=== PATIENT | female | born 1970 | race Caucasian/White ===

== ENCOUNTER 2017-05-24 22:30 | Inpatient (IN) | payer MEDICAID ==
[~2017-05-24] VITALS: Ht 154.9 cm; Wt 58.1 kg
[2017-05-25] VITALS (12 sets, daily range): BP systolic 99–181; BP diastolic 49–104
[2017-05-25] MEDS ORDERED: ONDANSETRON HCL 4MG/2ML VIAL IV PRN (02:15)
[2017-05-25] MEDS ORDERED: ZOLPIDEM TARTRATE 5MG TABLET PO PRN (02:15)
[2017-05-25] MEDS: HYDROMORPHONE HCL/PF 2MG/ML CPJ IM PRN ×2 (06:26→19:38)
[2017-05-25] MEDS: SODIUM CHLORIDE 0.45% 1,000 ML IV SCH ×2 (06:26→15:30)
[2017-05-25 07:34] LABS: HEMATOCRIT. 42.3 % (36.0-48.0); MEAN CORPUSCULAR HEMOGLOBIN 28.6 pg (28.0-32.0); MEAN CORPUSCULAR VOLUME 86.3 fL (81.0-99.0); MEAN PLATELET VOLUME 9.7 fl (7.4-10.4); PLATELET 252 x1000/uL (130-400); RED CELL DISTRIBUTION WIDTH 16.7 % (11.6-14.6)
[2017-05-25 08:16] LABS: AMYLASE 25 IU/L (25-115); CARBON DIOXIDE 27 mEq/L (21-32); CHLORIDE 97 mEq/L (98-107)
[2017-05-25] MEDS ORDERED: PANTOPRAZOLE SODIUM 40 MG/VIAL IV SCH (09:00)
[2017-05-25] MEDS: FAMOTIDINE 20MG TABLET PO SCH ×2 (09:08→20:02)
[2017-05-25] MEDS: ENOXAPARIN 40MG/0.4ML SYR SUBCUT SCH (09:09)
[2017-05-25] MEDS: METRONIDAZOLE 500 MG PREMIX 100 ML IV SCH ×3 (09:52→21:07)
[2017-05-25] MEDS: LEVOFLOXACIN 500MG PREMIX 100 ML IV SCH (11:55)
[2017-05-25] MEDS: LORAZEPAM 2MG/ML CPJ IV PRN ×2 (12:14→19:25)
[2017-05-25 12:17] LABS: INR 1.3; PARTIAL THROMBOPLASTIN TIME 33.6 sec (24.0-34.0); PROTHROMBIN TIME 13.1 sec
[2017-05-25] MEDS ORDERED: GADOBENATE DIMEGLUMINE 529 MG/ML 10ML IV ONE (13:31)
[2017-05-25] MEDS ORDERED: SODIUM BICARBONATE 4.2% 5 MEQ/10 ML DISP.SYRIN IV ONE (13:32)
[2017-05-25] MEDS ORDERED: LIDOCAINE HCL 1% 20ML VIAL (Pyxis) INJ ONE (13:32)
[2017-05-25 13:52] LABS: PLATELET ESTIMATE NORMAL
[2017-05-25] MEDS: ACETAMINOPHEN 325MG TABLET PO PRN (19:39)
[2017-05-25] MEDS: ZOLPIDEM TARTRATE 5MG TABLET PO PRN (20:02)
[2017-05-25 20:03] LABS: BG BASE EXCESS -0.9 mmol/L (-2.0-2.0); BG CARBOXYHEMOGLOBIN 0.3 % (0.5-1.5); BG DEOXYHEMOGLOBIN 2.7 % (0.0-5.0); BG FRACTION INSPIRED OXYGEN 28; BG HCO3 ACT 22.6 mmol/L (22.0-26.0); BG METHEMOGLOBIN 0.3 % (0.0-1.5); BG OXYGEN SATURATION 97.3 % (92.0-98.5); BG OXYHEMOGLOBIN 96.7 % (94.0-97.0); BG PCO2 33.7 mmHg (35.0-45.0); BG PH 7.444 (7.350-7.450); BG PO2 90.5 mmHg (75.0-100.0); BG SAMPLE SITE RIGHT RADIAL; BG TOTAL HEMOGLOBIN 11.8 g/dL (12.0-18.0); BG VENT MODE NASAL CANNULA
[2017-05-25 20:44] LABS: CREATINE KINASE 16 IU/L (26-192); CREATINE KINASE MB FRACTION 0.9 ng/mL (0.5-3.6); TROPONIN I < 0.02 ng/mL (0.00-0.04)
[2017-05-26] VITALS: BP 100/55
[2017-05-26 04:00] VITALS: BP 101/50
[2017-05-26 04:07] LABS: CARBON DIOXIDE 26 mEq/L (21-32); CHLORIDE 96 mEq/L (98-107); CREATINE KINASE 499 IU/L (26-192); CREATINE KINASE MB FRACTION 11.6 ng/mL (0.5-3.6); TROPONIN I 0.03 ng/mL (0.00-0.04)
[2017-05-26] MEDS: SODIUM CHLORIDE 0.45% 1,000 ML IV SCH ×2 (05:17→20:02)
[2017-05-26] MEDS: METRONIDAZOLE 500 MG PREMIX 100 ML IV SCH ×3 (05:17→21:29)
[2017-05-26 08:00] VITALS: BP 122/65
[2017-05-26] MEDS: FAMOTIDINE 20MG TABLET PO SCH ×2 (08:36→20:01)
[2017-05-26] MEDS: ENOXAPARIN 40MG/0.4ML SYR SUBCUT SCH (08:37)
[2017-05-26] MEDS: LEVOFLOXACIN 500MG PREMIX 100 ML IV SCH (11:10)
[2017-05-26] MEDS: LORAZEPAM 2MG/ML CPJ IV PRN ×2 (11:15→20:01)
[2017-05-26] MEDS: HYDROMORPHONE HCL/PF 2MG/ML CPJ IM PRN ×2 (11:16→20:02)
[2017-05-26 12:00] VITALS: BP 105/56
[2017-05-26 13:12] LABS: ALPHA FETOPROTEIN TUMOR MARKER 1.1 ng/mL (0.0-8.3)
[2017-05-26 16:00] VITALS: BP 106/70
[2017-05-26 20:00] VITALS: BP 119/67
[2017-05-26] MEDS: ZOLPIDEM TARTRATE 5MG TABLET PO PRN (21:29)
[2017-05-26] MEDS: IPRATROPIUM/ALBUTEROL 0.5-3(2.5)MG/3ML NEB HHN PRN (21:38)
[2017-05-27] VITALS: BP 112/45
[2017-05-27] MEDS: IPRATROPIUM/ALBUTEROL 0.5-3(2.5)MG/3ML NEB HHN PRN ×3 (02:54→20:56)
[2017-05-27 04:00] VITALS: BP 116/59
[2017-05-27] MEDS: METRONIDAZOLE 500 MG PREMIX 100 ML IV SCH ×2 (06:26→13:35)
[2017-05-27 06:27] LABS: HEMATOCRIT. 22.8 % (36.0-48.0); HEMOGLOBIN. 7.5 g/dL (12.0-16.0); MEAN CORPUSCULAR HEMOGLOBIN 27.8 pg (28.0-32.0); MEAN CORPUSCULAR VOLUME 83.8 fL (81.0-99.0); MEAN PLATELET VOLUME 8.5 fl (7.4-10.4); PLATELET 222 x1000/uL (130-400); RED BLOOD CELL COUNT 2.72 mill/uL (4.2-5.4)
[2017-05-27 06:42] LABS: CARBON DIOXIDE 29 mEq/L (21-32); CHLORIDE 98 mEq/L (98-107)
[2017-05-27 08:00] VITALS: BP 113/61
[2017-05-27] MEDS: FAMOTIDINE 20MG TABLET PO SCH ×2 (09:35→20:23)
[2017-05-27] MEDS: ENOXAPARIN 40MG/0.4ML SYR SUBCUT SCH (09:35)
[2017-05-27] MEDS: LEVOFLOXACIN 500MG PREMIX 100 ML IV SCH (10:43)
[2017-05-27 11:00] LABS: PLATELET ESTIMATE NORMAL
[2017-05-27 12:00] VITALS: BP 122/61
[2017-05-27] MEDS: LORAZEPAM 2MG/ML CPJ IV PRN (13:34)
[2017-05-27] MEDS: ACETAMINOPHEN 325MG TABLET PO PRN (13:35)
[2017-05-27 16:00] VITALS: BP 105/59
[2017-05-27 20:00] VITALS: BP 135/55
[2017-05-27] MEDS: HYDROMORPHONE HCL/PF 2MG/ML CPJ IM PRN (20:14)
[2017-05-27] MEDS: SODIUM CHLORIDE 0.45% 1,000 ML IV SCH (22:30)
[2017-05-28] VITALS (8 sets, daily range): BP systolic 104–140; BP diastolic 50–82
[2017-05-28] MEDS: METRONIDAZOLE 500 MG PREMIX 100 ML IV SCH ×3 (02:50→14:25)
[2017-05-28] MEDS: HYDROMORPHONE HCL/PF 2MG/ML CPJ IM PRN ×3 (04:05→22:50)
[2017-05-28 07:05] LABS: HEMATOCRIT. 21.3 % (36.0-48.0); MEAN CORPUSCULAR HEMOGLOBIN 27.7 pg (28.0-32.0); MEAN CORPUSCULAR VOLUME 84.1 fL (81.0-99.0); PLATELET 231 x1000/uL (130-400); RED BLOOD CELL COUNT 2.53 mill/uL (4.2-5.4); RED CELL DISTRIBUTION WIDTH 16.4 % (11.6-14.6)
[2017-05-28 07:08] LABS: CARBON DIOXIDE 29 mEq/L (21-32); CHLORIDE 102 mEq/L (98-107)
[2017-05-28] MEDS: FAMOTIDINE 20MG TABLET PO SCH ×2 (09:12→20:59)
[2017-05-28 10:06] LABS: PLATELET ESTIMATE NORMAL
[2017-05-28] MEDS: ACETAMINOPHEN 325MG TABLET PO PRN (11:06)
[2017-05-28] MEDS: LEVOFLOXACIN 500MG PREMIX 100 ML IV SCH (13:05)
[2017-05-28] MEDS ORDERED: MAGNESIUM/ALUMINUM HYDROXIDE/SIMETHICONE 30ML UDC PO PRN (16:15)
[2017-05-28 17:20] LABS: HEMOGLOBIN 8.5 g/dL (12.0-16.0)
[2017-05-28] MEDS: PIPERACILLIN/TAZ 3.375G PREMIX 50 ML IV SCH (18:26)
[2017-05-28] MEDS: SODIUM CHLORIDE 0.45% 1,000 ML IV SCH (18:26)
[2017-05-28] MEDS: LORAZEPAM 2MG/ML CPJ IV PRN (20:59)
[2017-05-29] VITALS: BP 134/75
[2017-05-29] MEDS: PIPERACILLIN/TAZ 3.375G PREMIX 50 ML IV SCH ×4 (02:16→18:09)
[2017-05-29] MEDS: SODIUM CHLORIDE 0.45% 1,000 ML IV SCH ×3 (02:17→20:30)
[2017-05-29 04:00] VITALS: BP 120/69
[2017-05-29] MEDS: HYDROMORPHONE HCL/PF 2MG/ML CPJ IM PRN ×3 (05:30→20:25)
[2017-05-29 07:15] LABS: HEMATOCRIT. 26.4 % (36.0-48.0); HEMOGLOBIN. 8.7 g/dL (12.0-16.0); MEAN CORPUSCULAR HEMOGLOBIN 27.8 pg (28.0-32.0); MEAN CORPUSCULAR VOLUME 83.9 fL (81.0-99.0); MEAN PLATELET VOLUME 7.5 fl (7.4-10.4); PLATELET 240 x1000/uL (130-400); RED BLOOD CELL COUNT 3.14 mill/uL (4.2-5.4); RED CELL DISTRIBUTION WIDTH 16.1 % (11.6-14.6)
[2017-05-29 08:00] VITALS: BP 120/70
[2017-05-29 08:42] LABS: CARBON DIOXIDE 29 mEq/L (21-32); CHLORIDE 100 mEq/L (98-107)
[2017-05-29 09:37] LABS: NUCLEATED RED BLOOD CELLS 1 /100 WBC; PLATELET ESTIMATE NORMAL
[2017-05-29] MEDS: FAMOTIDINE 20MG TABLET PO SCH ×2 (09:39→20:28)
[2017-05-29] MEDS ORDERED: METRONIDAZOLE 500 MG PREMIX 100 ML IV SCH (10:00)
[2017-05-29 12:00] VITALS: BP 116/42
[2017-05-29] MEDS: LEVOFLOXACIN 500MG PREMIX 100 ML IV SCH (12:00)
[2017-05-29 16:00] VITALS: BP 124/48
[2017-05-29 20:00] VITALS: BP 102/73
[2017-05-30] VITALS: BP 117/64
[2017-05-30] MEDS: HYDROMORPHONE HCL/PF 2MG/ML CPJ IM PRN (00:24)
[2017-05-30] MEDS: PIPERACILLIN/TAZ 3.375G PREMIX 50 ML IV SCH ×5 (00:24→23:00)
[2017-05-30 04:00] VITALS: BP 115/54
[2017-05-30] MEDS ORDERED: HYDROMORPHONE HCL/PF 2MG/ML CPJ IM PRN (05:00)
[2017-05-30 07:22] LABS: HEMATOCRIT. 25.9 % (36.0-48.0); HEMOGLOBIN. 8.5 g/dL (12.0-16.0); MEAN CORPUSCULAR HEMOGLOBIN 27.5 pg (28.0-32.0); MEAN CORPUSCULAR VOLUME 83.8 fL (81.0-99.0); MEAN PLATELET VOLUME 7.4 fl (7.4-10.4); PLATELET 267 x1000/uL (130-400); RED BLOOD CELL COUNT 3.09 mill/uL (4.2-5.4); RED CELL DISTRIBUTION WIDTH 16.4 % (11.6-14.6)
[2017-05-30 07:33] LABS: CARBON DIOXIDE 32 mEq/L (21-32); CHLORIDE 97 mEq/L (98-107)
[2017-05-30] MEDS: FAMOTIDINE 20MG TABLET PO SCH ×2 (08:56→22:50)
[2017-05-30] MEDS: LEVOFLOXACIN 500MG PREMIX 100 ML IV SCH (10:56)
[2017-05-30] MEDS: HYDROMORPHONE HCL/PF 2MG/ML CPJ IV PRN ×4 (10:57→22:50)
[2017-05-30] MEDS ORDERED: SODIUM BICARBONATE 4.2% 5 MEQ/10 ML DISP.SYRIN IV ONE (11:09)
[2017-05-30 11:45] LABS: PLATELET ESTIMATE NORMAL
[2017-05-30 16:00] VITALS: BP 134/66
[2017-05-30] MEDS: SODIUM CHLORIDE 0.45% 1,000 ML IV SCH (16:07)
[2017-05-30] MEDS: ACETAMINOPHEN 325MG TABLET PO PRN (16:50)
[2017-05-30 20:00] VITALS: BP 106/55
[2017-05-31] VITALS: BP 109/56
[2017-05-31] MEDS: HYDROMORPHONE HCL/PF 2MG/ML CPJ IV PRN ×6 (02:54→22:39)
[2017-05-31 04:00] VITALS: BP 114/64
[2017-05-31] MEDS: SODIUM CHLORIDE 0.45% 1,000 ML IV SCH ×2 (06:24→18:17)
[2017-05-31] MEDS: PIPERACILLIN/TAZ 3.375G PREMIX 50 ML IV SCH ×3 (06:24→18:17)
[2017-05-31 06:48] LABS: HEMATOCRIT. 27.4 % (36.0-48.0); HEMOGLOBIN. 9.1 g/dL (12.0-16.0); MEAN CORPUSCULAR HEMOGLOBIN 27.8 pg (28.0-32.0); MEAN CORPUSCULAR VOLUME 83.7 fL (81.0-99.0); MEAN PLATELET VOLUME 7.4 fl (7.4-10.4); PLATELET 316 x1000/uL (130-400); RED BLOOD CELL COUNT 3.28 mill/uL (4.2-5.4); RED CELL DISTRIBUTION WIDTH 16.4 % (11.6-14.6)
[2017-05-31 08:00] VITALS: BP 127/54
[2017-05-31 08:11] LABS: CARBON DIOXIDE 29 mEq/L (21-32); CHLORIDE 96 mEq/L (98-107)
[2017-05-31] MEDS: FAMOTIDINE 20MG TABLET PO SCH ×2 (08:43→22:39)
[2017-05-31 11:22] LABS: PLATELET ESTIMATE NORMAL
[2017-05-31 12:00] VITALS: BP 99/50
[2017-05-31 16:00] VITALS: BP 120/51
[2017-05-31 20:00] VITALS: BP 102/57
[2017-06-01] VITALS (7 sets, daily range): BP systolic 91–117; BP diastolic 38–64
[2017-06-01] MEDS: PIPERACILLIN/TAZ 3.375G PREMIX 50 ML IV SCH ×4 (01:03→17:17)
[2017-06-01] MEDS: SODIUM CHLORIDE 0.45% 1,000 ML IV SCH ×2 (01:09→21:40)
[2017-06-01] MEDS: HYDROMORPHONE HCL/PF 2MG/ML CPJ IV PRN ×5 (02:34→21:39)
[2017-06-01 06:56] LABS: HEMOGLOBIN. 8.7 g/dL (12.0-16.0); MEAN CORPUSCULAR HEMOGLOBIN 28.2 pg (28.0-32.0); MEAN CORPUSCULAR VOLUME 84.7 fL (81.0-99.0); MEAN PLATELET VOLUME 7.5 fl (7.4-10.4); PLATELET 319 x1000/uL (130-400); RED BLOOD CELL COUNT 3.07 mill/uL (4.2-5.4); RED CELL DISTRIBUTION WIDTH 16.3 % (11.6-14.6)
[2017-06-01 08:07] LABS: CARBON DIOXIDE 30 mEq/L (21-32); CHLORIDE 96 mEq/L (98-107)
[2017-06-01] MEDS: FAMOTIDINE 20MG TABLET PO SCH ×2 (09:28→21:38)
[2017-06-01] MEDS: ENOXAPARIN 40MG/0.4ML SYR SUBCUT SCH (09:29)
[2017-06-01 14:36] LABS: PLATELET ESTIMATE NORMAL
[2017-06-02] VITALS: BP 109/55
[2017-06-02] MEDS: PIPERACILLIN/TAZ 3.375G PREMIX 50 ML IV SCH ×5 (01:39→21:45)
[2017-06-02] MEDS: HYDROMORPHONE HCL/PF 2MG/ML CPJ IV PRN (04:27)
[2017-06-02 04:32] VITALS: BP 100/54
[2017-06-02 06:08] LABS: HEMATOCRIT. 27.7 % (36.0-48.0); HEMOGLOBIN. 9.2 g/dL (12.0-16.0); MEAN CORPUSCULAR HEMOGLOBIN 27.9 pg (28.0-32.0); MEAN CORPUSCULAR VOLUME 84.3 fL (81.0-99.0); MEAN PLATELET VOLUME 7.2 fl (7.4-10.4); PLATELET 374 x1000/uL (130-400); RED BLOOD CELL COUNT 3.29 mill/uL (4.2-5.4); RED CELL DISTRIBUTION WIDTH 16.2 % (11.6-14.6)
[2017-06-02 07:19] LABS: CARBON DIOXIDE 30 mEq/L (21-32); CHLORIDE 100 mEq/L (98-107)
[2017-06-02 08:00] VITALS: BP 107/53
[2017-06-02 08:34] LABS: ATYPICAL LYMPHOCYTES 1; PLATELET ESTIMATE NORMAL
[2017-06-02] MEDS: ENOXAPARIN 40MG/0.4ML SYR SUBCUT SCH (08:46)
[2017-06-02] MEDS: FAMOTIDINE 20MG TABLET PO SCH ×2 (09:00→21:45)
[2017-06-02] MEDS: SODIUM CHLORIDE 0.45% 1,000 ML IV SCH ×2 (09:30→21:45)
[2017-06-02 12:00] VITALS: BP 97/53
[2017-06-02] MEDS ORDERED: IOHEXOL-300 100 ML BOTTLE ONE (12:50)
[2017-06-02 16:00] VITALS: BP 110/60
[2017-06-02 16:46] LABS: UCG SCREEN NEGATIVE
[2017-06-02] MEDS ORDERED: DEXTROSE 50% WATER 50ML SYRINGE IV ONE (17:29)
[2017-06-02 20:00] VITALS: BP 120/54
[2017-06-02] MEDS: ACETAMINOPHEN 325MG TABLET PO PRN (21:47)
[2017-06-03] VITALS: BP 108/58
[2017-06-03] MEDS: HYDROMORPHONE HCL/PF 2MG/ML CPJ IV PRN (01:20)
[2017-06-03 04:00] VITALS: BP 100/50
[2017-06-03 06:15] LABS: HEMATOCRIT. 26.8 % (36.0-48.0); HEMOGLOBIN. 8.8 g/dL (12.0-16.0); MEAN CORPUSCULAR HEMOGLOBIN 27.9 pg (28.0-32.0); MEAN CORPUSCULAR VOLUME 84.9 fL (81.0-99.0); MEAN PLATELET VOLUME 7.3 fl (7.4-10.4); PLATELET 421 x1000/uL (130-400); RED BLOOD CELL COUNT 3.16 mill/uL (4.2-5.4); RED CELL DISTRIBUTION WIDTH 16.3 % (11.6-14.6)
[2017-06-03 07:57] LABS: CARBON DIOXIDE 27 mEq/L (21-32); CHLORIDE 104 mEq/L (98-107)
[2017-06-03 08:00] VITALS: BP 103/59
[2017-06-03] MEDS: SODIUM CHLORIDE 0.45% 1,000 ML IV SCH (08:08)
[2017-06-03] MEDS: PIPERACILLIN/TAZ 3.375G PREMIX 50 ML IV SCH ×3 (08:08→17:25)
[2017-06-03] MEDS: ACETAMINOPHEN 325MG TABLET PO PRN ×2 (09:22→17:28)
[2017-06-03] MEDS: FAMOTIDINE 20MG TABLET PO SCH ×2 (09:23→21:39)
[2017-06-03] MEDS: ENOXAPARIN 40MG/0.4ML SYR SUBCUT SCH (09:23)
[2017-06-03 12:00] VITALS: BP 106/52
[2017-06-03] MEDS ORDERED: IPRATROPIUM/ALBUTEROL 0.5-3(2.5)MG/3ML NEB HHN PRN (12:30)
[2017-06-03] MEDS ORDERED: SODIUM CHLORIDE 0.9% 10ML VIAL ONE (14:44)
[2017-06-03] MEDS ORDERED: IOHEXOL-300 100 ML BOTTLE ONE (14:44)
[2017-06-03 16:32] VITALS: BP 129/57
[2017-06-03 19:34] VITALS: BP_SYST 90; BP_SYST 99; BP_DIAS 52
[2017-06-04] MEDS: PIPERACILLIN/TAZ 3.375G PREMIX 50 ML IV SCH ×5 (00:04→23:38)
[2017-06-04] MEDS: SODIUM CHLORIDE 0.45% 1,000 ML IV SCH ×2 (04:34→21:56)
[2017-06-04 04:47] VITALS: BP 111/47
[2017-06-04 06:50] LABS: BASOPHILS % 1.3 % (0.0-2.0); EOSINOPHILS % 1.9 % (0.0-5.0); HEMOGLOBIN. 9.2 g/dL (12.0-16.0); LYMPHOCYTES % 11.4 % (20.0-50.0); MEAN CORPUSCULAR HEMOGLOBIN 27.4 pg (28.0-32.0); MEAN CORPUSCULAR VOLUME 83.7 fL (81.0-99.0); MEAN PLATELET VOLUME 7.3 fl (7.4-10.4); MONOCYTES % 9.6 % (2.0-8.0); NEUTROPHILS % 75.8 % (40.0-76.0); PLATELET 534 x1000/uL (130-400); RED BLOOD CELL COUNT 3.35 mill/uL (4.2-5.4); RED CELL DISTRIBUTION WIDTH 16.4 % (11.6-14.6)
[2017-06-04 08:00] LABS: CARBON DIOXIDE 24 mEq/L (21-32); CHLORIDE 105 mEq/L (98-107)
[2017-06-04 08:45] VITALS: BP 99/51
[2017-06-04] MEDS: ENOXAPARIN 40MG/0.4ML SYR SUBCUT SCH (08:51)
[2017-06-04] MEDS: FAMOTIDINE 20MG TABLET PO SCH ×2 (08:51→21:55)
[2017-06-04 11:47] LABS: PLATELET ESTIMATE SLIGHTLY INCREASED
[2017-06-04 12:35] VITALS: BP 106/53
[2017-06-04 16:14] VITALS: BP_SYST 101; BP_SYST 104; BP_DIAS 53; BP_DIAS 60
[2017-06-04 20:00] VITALS: BP 112/51
[2017-06-04] MEDS: ACETAMINOPHEN 325MG TABLET PO PRN (22:05)
[2017-06-05 00:22] VITALS: BP 110/50
[2017-06-05 04:00] VITALS: BP 104/59
[2017-06-05] MEDS: PIPERACILLIN/TAZ 3.375G PREMIX 50 ML IV SCH ×3 (06:04→17:30)
[2017-06-05 06:48] LABS: BASOPHILS % 1.3 % (0.0-2.0); EOSINOPHILS % 2.9 % (0.0-5.0); HEMOGLOBIN. 9.3 g/dL (12.0-16.0); LYMPHOCYTES % 14.2 % (20.0-50.0); MEAN CORPUSCULAR HEMOGLOBIN 27.9 pg (28.0-32.0); MEAN CORPUSCULAR VOLUME 83.8 fL (81.0-99.0); MEAN PLATELET VOLUME 7.4 fl (7.4-10.4); NEUTROPHILS % 70.6 % (40.0-76.0); PLATELET 565 x1000/uL (130-400); RED BLOOD CELL COUNT 3.34 mill/uL (4.2-5.4); RED CELL DISTRIBUTION WIDTH 16.2 % (11.6-14.6)
[2017-06-05 07:15] LABS: CHLORIDE 106 mEq/L (98-107)
[2017-06-05 07:20] LABS: CARBON DIOXIDE 25 mEq/L (21-32)
[2017-06-05 07:42] VITALS: BP 100/56
[2017-06-05] MEDS: ENOXAPARIN 40MG/0.4ML SYR SUBCUT SCH (08:22)
[2017-06-05] MEDS: FAMOTIDINE 20MG TABLET PO SCH (09:00)
[2017-06-05 12:20] VITALS: BP 107/42
[2017-06-05 15:51] VITALS: BP 107/53
[2017-06-05 16:52] VITALS: BP 107/53
== END 2017-06-05 18:30 | disposition short-term general hospital (02) | DRG 720 ==
LOC: 6EST 22:30 → 6WST 06-03 14:35
PROVIDERS: ADMIT Internal Medicine; ATTEND Internal Medicine
PROC: 0F9030Z Drainage of Liver with Drainage Device, Percutaneous Approach (ICD-10-PCS; principal; 2017-05-25)
PROC: 0W993ZZ Drainage of Right Pleural Cavity, Percutaneous Approach (ICD-10-PCS; 2017-05-30)
DX: A41.9 Sepsis, unspecified organism (principal); I26.99 Other pulmonary embolism without acute cor pulmonale; E43 Unspecified severe protein-calorie malnutrition; K75.0 Abscess of liver; J90 Pleural effusion, not elsewhere classified; R18.8 Other ascites; E83.51 Hypocalcemia; E86.0 Dehydration; D72.829 Elevated white blood cell count, unspecified; D64.9 Anemia, unspecified; D72.825 Bandemia; Z68.24 Body mass index [BMI] 24.0-24.9, adult; J98.11 Atelectasis; K86.9 Disease of pancreas, unspecified; Z90.49 Acquired absence of other specified parts of digestive tract
CPT/HCPCS: 32555; 36415; 36600; 71010; 71260; 74150; 74177; 74183; 76942; 78582; 80048; 80053; 81025; 82105; 82150; 82375; 82378; 82550; 82553; 82805; 82962; 83690; 84484; 85014; 85018; 85025; 85610; 85730; 86301; 86850; 86900; 86920; 87070; 87075; 87077; 87186; 87205; 93005; 93970; 94640; 94664; A4216; A9558; A9577; C1729; C1893; J1170; J1650; J1956; J2060; J2543; J3490; J7040; J7050; J7620; P9016; Q9967